=== PATIENT | female | born 1980 | race Caucasian/White ===

== ENCOUNTER 2017-07-20 21:06 | Emergency (ER) | payer OTHER ==
--- NOTE | 2017-07-20 21:34 | ED Physician Documentation ---
General Adult - HISTORIAN Historian: patient - HPI Stated Complaint: R eye pain Chief Complaint: General Adult Onset: days ago (1) Timing: still present Severity: moderate Further Comments: yes (Pt is a 36 yo female with pain, inflammation in her R eye. Pt's children have been ill with sore throats and flu, she says. Pt says pain is worse with looking at light.) - ROS CONST: no problems EYES/ENT: other (R eye pain) CVS/RESP: none GI/: none MS/SKIN/LYMPH: none - PAST HX Past History: other (anxiety/depression) Allergies/Adverse Reactions: Allergies Allergy/AdvReac Type Severity Reaction Status Date / Time No Known Allergies Allergy Verified 08/28/15 13:51 Home Medications: Ambulatory Orders Medication Instructions Recorded Buspirone HCl [BUSPAR] 15 mg PO TID 08/28/15 Citalopram Hydrobromide 40 mg PO DAILY 08/28/15 [Citalopram HBr] Clonazepam [Clonazepam] 1 mg PO TID 08/28/15 Hydroxyzine Pamoate 50 mg PO BID 08/28/15 - SOCIAL HX Smoking History: cigarettes Alcohol Use: none Drug Use: none - FAMILY HX Family History: No - VITAL SIGNS Vital Signs: Vital Signs Temp Pulse Resp BP Pulse Ox 121/65 08/28/15 14:44 - REVIEWED ASSESSMENTS Nursing Assessment Reviewed: Yes Vitals Reviewed: Yes Progress - Progress Progress: Rx Gentamicin opthalmic drops. 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 ED Results Lab/Radiology - Orders Orders: ED Orders Category Date Time Status Gentamicin Sulfate [Gentak 0.3% Opth Tessa] Med 07/20/17 21:29 Once 2 drop OP NOW ONE General Adult Physical Exam - PHYSICAL EXAM GENERAL APPEARANCE: mild distress EENT: pharynx normal, LEELEE, other (R eye mild scleral injection) RESPIRATORY: no resp distress, chest non-tender, breath sounds normal CVS: reg rate & rhythm, heart sounds normal BACK: normal inspection SKIN: warm/dry, normal color EXTREMITIES: non-tender, normal range of motion, no evidence of injury NEURO: oriented X3, motor nml, sensation nml Discharge Clincal Impression: R eye pain, conjunctivitis, possible early uveitis Referrals: Derrek Alvarez MD [Primary Care Provider] - Condition: Good Disposition: 01 HOME, SELF-CARE Decision to Admit: NO Decision Time: 01:05
[2017-07-20] MEDS: GENTAMICIN SULFATE 0.3% OPTH SOL OP ONE (21:46)
[2017-07-21 01:28] VITALS: BP 108/52
== END 2017-07-20 21:49 | disposition home or self-care (01) ==
LOC: ED 21:06
DX: H10.9 Unspecified conjunctivitis (principal)
CPT/HCPCS: 99282

== ENCOUNTER 2018-09-06 05:57 | Emergency (ER) | payer SELFPAY ==
[2017-07-21 01:28] VITALS: BP 108/52
[2018-09-06] MEDS ORDERED: AMOXICILLIN 500 MG CAPSULE PO ONE (06:39)
--- NOTE | 2018-09-06 06:44 | ED Physician Documentation ---
Upper Respiratory Symptoms - HISTORIAN Historian: patient - HPI Stated Complaint: "I have been throwing up, my sinuses have been full for 5 days" Chief Complaint: Upper Respiratory Symptoms Additional Information: Patient is a 37-year-old female who presents to the ER with c/o cough, congestion, sinus pressure, postnasal drainage causing her to feel nauseated with some emesis- she has been blowing her nose frequently. Onset: days ago (3-4 days ago) Duration: constant Context: same sx (son was sick with resp. virus). denies: recent foreign travel Severity: mild Associated Symptoms: sinus pain, sinus drainage, sore throat, productive cough Further Comments: no - ROS CONST/EYES: denies: weakness CVS/RESP: shortness of breath (when coughing) LYMPH: denies: leg swelling, rash GI/: vomiting (from nasal drainage), nausea NEURO/PSYCH: denies: dizziness MS/SKIN: muscle aches - PAST HX Lung Disease: none PE Risk Factors: none Surgeries/Procedures: hysterectomy Immunizations: UTD Allergies/Adverse Reactions: Allergies Allergy/AdvReac Type Severity Reaction Status Date / Time iodine Allergy Mild Verified 09/06/18 06:17 Iodine and Iodide Containing Allergy Mild Verified 09/06/18 06:17 Produc Home Medications: Ambulatory Orders Medication Instructions Recorded Amoxicillin 500 mg PO TID #30 capsule 09/06/18 Cetirizine HCl [Zyrtec] 10 mg PO DAILY 09/06/18 Fluticasone Propionate [Flonase 1 spray NS DAILY #1 bottle 09/06/18 Nasal Hamilton] Ondansetron HCl Rapdis [Zofran Odt] 4 mg PO Q8 PRN #5 tab 09/06/18 diphenhydrAMINE HCL [Benadryl] 25 mg PO TID 09/06/18 - SOCIAL HX Smoking History: less than 1 pack/day (occasional) Alcohol Use: none Drug Use: none - FAMILY HX Family History: no significant history - VITAL SIGNS Vital Signs: Vital Signs Temp Pulse Resp BP Pulse Ox 97.4 F L 91 H 12 128/74 98 09/06/18 06:09 09/06/18 06:09 09/06/18 06:09 09/06/18 06:09 09/06/18 06:09 ED Results Lab/Radiology - Orders Orders: ED Orders Category Date Time Status Amoxicillin [Amoxil] Med 09/06/18 06:39 Once 1,000 mg PO NOW ONE Upper Respiratory Symptoms - EXAM General Appearance: alert, mild distress EENT: eyes nml inspection, nml ENT inspection, PERRL, pain over sinuses, maxillary, mucosal edema, purulent nasal drainage, pharynx nml Neck: normal inspection, supple Respiratory: no resp. distress, breath sounds nml, speaks full sentences Abdomen: non-tender, nml bowel sounds CVS: reg rate & rhythm, heart sounds normal, equal pulses Skin: color nml, no rash, warm,dry Extremities: non-tender, normal range of motion Neuro/Psych: oriented x3, neuro intact, mood/affect nml Discharge Clincal Impression: Acute sinus infection Prescriptions: Amoxicillin 500 mg PO TID #30 capsule Fluticasone Propionate [Flonase Nasal Hamilton] 1 spray NS DAILY #1 bottle Ondansetron HCl Rapdis [Zofran Odt] 4 mg PO Q8 PRN #5 tab PRN Reason: Nausea / Vomiting Referrals: Derrek Alvarez MD [Primary Care Provider] - 2 Days Additional Instructions: Take Amoxil 500 mg by mouth 3 times a day for 10 days Use Flonase 1 nasal spray each nostril daily Mucinex DM 1 tab by mouth 2 times a day Increase fluid intake (no caffeine) Use a cool mist humidifier in room Hot tea with a tsp. of honey to help thin secretions Follow up with PCP as needed Condition: Good Disposition: 01 HOME, SELF-CARE Decision to Admit: NO Decision Time: 06:48
== END 2018-09-06 06:54 | disposition home or self-care (01) ==
LOC: ED 05:57
DX: J01.90 Acute sinusitis, unspecified (principal); Z72.0 Tobacco use
CPT/HCPCS: 99283